=== PATIENT | male | born 1975 | race Two or more races ===

== ENCOUNTER 2025-05-15 21:46 | Emergency (ER) | payer MEDICAID, OTHER ==
[~2025-05-15] VITALS: Ht 152.4 cm; Wt 61.0 kg
--- NOTE | 2025-05-15 23:38 | DVH ---
CLINICAL INDICATION: Fall/trauma TECHNIQUE: XY L KNEE 3V XRAY Comparison: None FINDINGS/IMPRESSION: : Distracted fracture of the mid patella the fragments by approximately 7 mm. Suprapatellar knee joint effusion. Moderate prepatellar soft tissue swelling. Normal mineralization and alignment. Joint spaces are preserved. Note is made of a fabella.
[2025-05-15] MEDS ORDERED: MORPHINE SULFATE INJ 2 MG/ml SYRG ONE (23:43)
[2025-05-15] MEDS ORDERED: ONDANSETRON HCL 4 MG/2 ML VIAL ONE (23:44)
[2025-05-15] MEDS: MORPHINE SULFATE INJ 2 MG/ml SYRG IV ONE (23:48)
[2025-05-15] MEDS: ONDANSETRON ODT 4 MG TAB PO ONE (23:49)
[2025-05-15] MEDS ORDERED: IBUP1TAB5 PO (23:57)
--- NOTE | 2025-05-15 23:57 | ED.PDOC ---
Mati. trauma (HPI) HPI Comments The patient is a pleasant and otherwise healthy 49-year-old female who arrives to the ED today via EMS for complaints of left knee pain concerns status post ground level fall approximately 1/2 hour prior to arrival. Patient states she had a mechanical trip and fall at home and landed on her left knee. Patient says she initially had some pain in the right arm, but at time of evaluation states that the pain is nearly gone. Patient denies any head trauma. No blood loss. Chief Complaint: Fall Injury Time Seen by MD: 21:49 Reviewed notes: Nurses Notes, Popcorn Attendant Notes Home Meds Active Scripts Ibuprofen Micronized (Ibuprofen) 600 Mg Tab, 600 MG PO Q6HP PRN, #30 TAB Prov:MICH SWANSON PAC 05/15/25 Information Source: Patient, Emergency Med Personnel Mode of Arrival: EMS Severity: Severe Timing: Minutes Duration: Since onset Prehospital treatment: Pain Meds Location: (L) Knee Location of laceration: None Mechanism: Fall Past Medical History PAST MEDICAL HISTORY: Denies Surgical History: Denies all surgeries Family History Family History: Reviewed,noncontributory to illness, No family hx of Cancer, No family hx of DM, No family hx of Heart carter, No family hx of HTN, No family hx ofKidney carter, No family hx of Liver carter, No family hx of Lung carter, No family hx of Stroke Social History Smoker: Non-Smoker Alcohol: Denies ETOH Use Drugs: Denies Drug Use Lives In: Home Constitutional: denies: chills, diaphoresis, fatigue, fever, malaise, sweats, weakness, others EENTM: denies: blurred vision, double vision, ear bleeding, ear discharge, ear drainage, ear pain, ear ringing, eye pain, eye redness, hearing loss, mouth pain, mouth swelling, nasal discharge, nose bleeding, nose congestion, nose pain, photophobia, tearing, throat pain, throat swelling, voice changes, others Respiratory: denies: cough, hemoptysis, orthopnea, SOB at rest, shortness of breath, SOB with excertion, stridor, wheezing, others Cardiovascular: denies: chest pain, dizzy spells, diaphoresis, Dyspnea on exertion, edema, irregular heart beat, left arm pain, lightheadedness, palpitations, PND, syncope, others Gastrointestinal: denies: abdomen distended, abdominal pain, blood streaked bowels, constipated, diarrhea, dysphagia, difficulty swallowing, hematemesis, melena, nausea, poor appetite, poor fluid intake, rectal bleeding, rectal pain, vomiting, others Genitourinary: denies: burning, dysuria, flank pain, frequency, hematuria, incontinence, penile discharge, penile sore, pain, testicle pain, testicle swelling, urgency, others Neurological: denies: dizziness, fainting, headache, left sided numbness, left sided weakness, numbness, paresthesia, pre-existing deficit, right sided numbness, right sided weakness, seizure, speech problems, tingling, tremors, weakness, others Musculoskeletal: reports: others (Left knee pain and swelling); denies: back pain, gout, joint pain, joint swelling, muscle pain, muscle stiffness, neck pain Integumetry: denies: bruises, change in color, change in hair/nails, dryness, laceration, lesions, lumps, rash, wounds, others Allergic/Immunocompromised: denies: Difficulty Healing, Frequent Infections, Hives, Itching, others Hematologic/Lymphatic: denies: anemia, blood clots, easy bleeding, easy bruising, swollen glands, others Endocrine: denies: excessive hunger, excessive sweating, excessive thirst, excessive urination, flushing, intolerance to cold, intolerance to heat, unexplained weight gain, unexplained weight loss, others Psychiatric: denies: anxiety, bipolar disorder, depression, hopeless, panic disorder, schizophrenia, sleepless, suicidal, others Physical Exam General Appearance: Moderate Distress (Due to left knee pain concerns.), Normal HEENT: Normal ENT Inspection, Pharynx Normal, TMs Normal Neck: Full Range of Motion, Non-Tender, Normal, Normal Inspection Respiratory: Chest Non-Tender, Lungs Clear, No Accessory Muscle Use, No Respiratory Distress, Normal Breath Sounds Cardiovascular: No Edema, No JVD, No Murmur, No Gallop, Normal Peripheral Pulses, Regular Rate/Rhythm Breast Exam: Deferred Gastrointestinal: No Organomegaly, Non Tender, No Pulsatile Mass, Normal Bowel Sounds, Soft Genitalia: Deferred Pelvic: Deferred Rectal: Deferred Extremities: Other (Significant edema with developing ecchymosis noted over the left patella. Exquisitely tender to palpation throughout. Significant reduced range of motion. Distal neurovascularly intact. Patient can not bear weight.) Neurologic: Alert, No Motor Deficits, Normal Affect, Normal Mood, No Sensory Deficits Cerebellar Function: NOT DONE Reflexes: NOT DONE Skin: Dry, Normal Color, Warm Lymphatic: No Adenopathy Was a procedure done? Was a procedure done?: No Differential Diagnosis Multiple Trauma: Other (A fracture, knee contusion, fall) X-Ray, Labs, Meds, VS Vital Signs Date Time Temp Pulse Resp B/P (MAP) Pulse Ox O2 Delivery O2 Flow Rate FiO2 05/15/25 23:48 88 16 152/77 05/15/25 23:30 Room Air* 0 21 05/15/25 23:30 98.0 88 16 152/77 (102) 96 98.0 05/15/25 21:46 98.4 98 20 155/82 (106) 99 98.4 Current Medications Medications (Trade) Dose Ordered Sig/Liang Route Start Time Stop Time Status Last Admin Morphine Sulfate 2 mg ONCE ONCE IV 05/15/25 22:00 05/15/25 22:01 DC 05/15/25 23:48 Ondansetron HCl (Zofran Po) 4 mg ONCE ONCE PO 05/15/25 22:00 05/15/25 22:01 DC 05/15/25 23:49 X-Ray, Labs, Meds, VS Comment All studies performed the ED were evaluated by me personally. X-ray of left knee revealed a mid patellar fracture that is slightly displaced. Patient will be placed in a knee immobilizer and provided with crutches. Patient has been advised to follow up with the primary care provider in the next few days for conversation is related to her management moving forward. Time of 1ST Reevaluation: 23:54 Reevaluation 1ST: Improved Consultation: PCP Patient Education/Counseling: Diagnosis, Treatment Family Education/Counseling: Diagnosis, Treatment Departure 1 Departure Time of Disposition: 23:55 Impression: Primary Impression: Fracture of patella, left, closed Disposition: 01 HOME / SELF CARE / HOMELESS Condition: Stable Additional Instructions: Advised patient utilize pain medication as needed. Patient should follow up with the primary care provider in the next few days for re-evaluation. If patient is unable to secure an appointment with her primary care provider, patient can call this facility at [phone] and asked for the orthopedic department run by Dr. Aguirre for evaluation and management. e-Prescriptions Hydrocodone-Acetaminophen (Hydrocodone Bitartrate/AC 10-325 mg) 1 Tab Tab 1 TAB PO Q8HP PRN, #20 TAB Prov: MICH SWANSON PAC 05/16/25 Ibuprofen Micronized (Ibuprofen) 600 Mg Tab 600 MG PO Q6HP PRN, #30 TAB Prov: MICH SWANSON PAC 05/15/25 Discharged With: Self, Friend Critical Care Note Critical Care Time?: No Stability Stability form required: No Heart Score Heart Score: Heart Score Response (Comments) Value History N/A 0 EKG N/A 0 Age N/A 0 Risk Factors N/A 0 Troponin N/A 0 Total 0 MICH SWANSON PAC May 15, 2025 23:57
[2025-05-16] MEDS ORDERED: HYDR-4798 PO (00:10)
[2025-05-16 00:50] VITALS: TEMP 98.3; O2SAT 100
[2025-05-16 00:52] VITALS: BP 100/68; PULSE 76; RESP 16
== END 2025-05-16 01:05 | disposition home or self-care (01) ==
LOC: EDBD 21:46 → ER 21:46
DX: S82.002A Unspecified fracture of left patella, initial encounter for closed fracture (principal); Z79.899 Other long term (current) drug therapy; W01.0XXA Fall on same level from slipping, tripping and stumbling without subsequent striking against object, initial encounter; Y93.89 Activity, other specified; Y92.89 Other specified places as the place of occurrence of the external cause; Y99.8 Other external cause status
CPT/HCPCS: 29505; 73562; 82947; 96374; 99283; J2270; J2405; 82962